=== PATIENT | male | born 1960 | race Caucasian/White ===

== ENCOUNTER 2023-12-05 11:47 | Inpatient (IN) | payer OTHER ==
[2023-12-05 12:15] VITALS: BMI 22.1
[2023-12-05] MEDS ORDERED: POLYETHYLENE GLYCOL (HEALTHYLAX) 3350 17 GM PACKET PO PRN (12:43)
[2023-12-05] MEDS ORDERED: BENZONATATE 200 MG CAPSULE PO PRN (12:43)
[2023-12-05] MEDS ORDERED: NICOTINE POLACRILEX 2 MG LOZENGE BC PRN (12:43)
[2023-12-05] MEDS ORDERED: MAGNESIUM HYDROX 2400MG/30ML ORAL SUSPENSION 30 ML CUP PO PRN (12:43)
[2023-12-05] MEDS ORDERED: ONDANSETRON *ODT* 4 MG TABLET SL PRN (12:43)
[2023-12-05] MEDS ORDERED: IBUPROFEN 400 MG TABLET (FP) PO PRN (12:43)
[2023-12-05] MEDS ORDERED: guaiFENesin 600 MG TABLET.ER (FP) PO PRN (12:43)
[2023-12-05] MEDS ORDERED: BENZOCAINE/MENTHOL (CHLORASEPTIC ) LOZENGE MM PRN (12:43)
[2023-12-05] MEDS ORDERED: LOPERAMIDE HCL 2 MG CAPSULE PO PRN (12:43)
[2023-12-05] MEDS ORDERED: IBUPROFEN 600 MG TABLET (FP) PO PRN (12:43)
[2023-12-05] MEDS: BACITRACIN 0.9 GM PACKET TP SCH (15:08)
[2023-12-05] MEDS: MAG HYDROX/AL HYDROX/SIMETH 30 ML UNIT-DOSE CUP PO PRN (17:36)
[2023-12-05] MEDS: chlordiazePOXIDE HCL 25 MG CAPSULE PO SCH (18:14)
[2023-12-05] MEDS: THIAMINE 100 MG TABLET PO SCH (23:03)
[2023-12-05] MEDS: MELATONIN 5 MG TABLETS PO SCH (23:04)
[2023-12-06] MEDS: PRENATAL VITAMINS W/ FOLIC ACID TABLET (FP) PO SCH (10:15)
[2023-12-06 10:32] LABS: HEMATOCRIT 38.1 % (35.4-49); HEMOGLOBIN 12.5 GM/dL (11.7-16.9); MCH 32.2 pg (25.7-33.7); MCHC 32.8 g/dl (32.0-35.9); MEAN PLT VOLUME 7.5 fl (7.5-11.1); PLATELET COUNT 242 10^3/uL (134-434); RBC 3.89 M/mm3 (4.00-5.60); RDW 12.9 % (11.9-15.9); WHITE BLOOD COUNT 6.6 K/mm3 (4.0-10.0)
[2023-12-06 10:52] LABS: ALBUMIN 3.4 g/dl (3.4-5.0); ANION GAP 6 mmol/L (4-13); BILIRUBIN,TOTAL 0.6 mg/dL (0.2-1); CALCIUM 8.7 mg/dL (8.5-10.1); CHLORIDE 105 mmol/L (98-107); CO2 31 mmol/L (21-32); CREATININE 0.9 mg/dL (0.55-1.3); GLUCOSE,RANDOM 173 mg/dL (74-106); POTASSIUM 4.2 mmol/L (3.5-5.1); SGOT/AST 24 U/L (15-37); SGPT/ALT 27 U/L (13-61); SODIUM 142 mmol/L (136-145)
[2023-12-06 10:53] LABS: ALK PHOS 71 U/L (45-117); TOT PROT 6.6 g/dl (6.4-8.2)
[2023-12-06] MEDS: BISMUTH SUBSALICYLATE 524 MG/30 ML PO PRN (12:05)
[2023-12-06] MEDS: GABAPENTIN 300 MG CAPSULE PO SCH (13:38)
[2023-12-06] MEDS: chlordiazePOXIDE HCL 25 MG CAPSULE PO PRN (13:38)
[2023-12-06] MEDS: FAMOTIDINE 20 MG TABLET PO SCH (15:43)
[2023-12-06] MEDS: ACETAMINOPHEN 325 MG TABLET (FP) PO PRN (18:06)
[2023-12-07] MEDS: chlordiazePOXIDE HCL 25 MG CAPSULE PO SCH (05:43)
[2023-12-07] MEDS: FINASTERIDE 5 MG TABLET (FP) PO SCH (07:12)
[2023-12-07] MEDS: NICOTINE POLACRILEX 2 MG GUM BUC PRN (21:08)
[2023-12-08] MEDS ORDERED: chlordiazePOXIDE HCL 10 MG CAPSULE PO PRN
[2023-12-08] MEDS: chlordiazePOXIDE HCL 10 MG CAPSULE PO SCH (05:35)
[2023-12-08] MEDS: NICOTINE 21 MG/24 HOURS TOPICAL PATCH TD PRN (12:24)
[2023-12-08 13:29] VITALS: BP 136/88; PULSE 70; RESP 16; TEMP 97.7
[2023-12-09] MEDS ORDERED: chlordiazePOXIDE HCL 10 MG CAPSULE PO SCH (05:00)
[2023-12-10] MEDS ORDERED: chlordiazePOXIDE HCL 10 MG CAPSULE PO ONE (05:00)
== END 2023-12-08 16:00 | disposition left against medical advice (07) | DRG 770 ==
LOC: YASAS 11:47 → Y6N 13:29
PROVIDERS: ADMIT Allergy & Immunology; ATTEND Surgery
PROC: HZ2ZZZZ Detoxification Services for Substance Abuse Treatment (ICD-10-PCS; principal; 2023-12-05)
DX: F10.230 Alcohol dependence with withdrawal, uncomplicated (principal); F14.20 Cocaine dependence, uncomplicated; F12.20 Cannabis dependence, uncomplicated; F17.210 Nicotine dependence, cigarettes, uncomplicated; G62.9 Polyneuropathy, unspecified; I10 Essential (primary) hypertension; K21.9 Gastro-esophageal reflux disease without esophagitis; M54.50 Low back pain, unspecified; G89.29 Other chronic pain; N40.0 Benign prostatic hyperplasia without lower urinary tract symptoms
CPT/HCPCS: 36415; 80053; 80305; 80307; 83036; 85027; 86780; 93005; 93010